=== PATIENT | male | born 1975 | race Two or more races ===

== ENCOUNTER 2024-11-06 09:21 | Emergency (ER) | payer MEDICAID, SELFPAY ==
[2024-11-06 09:22] VITALS: BMI 33.7
[2024-11-06 09:53] VITALS: BP 80/59; BP 99/65; PULSE 76; RESP 18; TEMP 36.6; O2SAT 95
--- NOTE | 2024-11-06 10:23 | PD.EDRME ---
Rapid Medical Screening Exam E Arrival date/time: 11/06/24 09:21 This is a 49-year-old male that was sent from the clinic with complaints of low blood pressure. Patient states that he usually has high blood pressure and takes losartan 100 mg daily. This morning when he took his medication he started feeling very dizzy and so he went to the clinic. Patient also had a rash to his neck that seems to have resolved now but patient has pictures on his phone. Patient continues to feel dizzy and was hypotensive in triage today initially in the 70s systolics 80s systolic. Patient denies chest pain but complains of shortness of breath. I have greeted and performed a focused initial assessment of this patient. Initial appropriate labs ordered at this time. A comprehensive ED assessment and evaluation of the patient and analysis of all test and completion of medical decision making process will be conducted by additional ED provider. Chief Complaint: General Adult/Misc Complain Time Seen by Provider: 11/06/24 09:57 Vital signs: Vital Signs Temperature 97.8 F 11/06/24 09:53 Pulse Rate 76 11/06/24 09:53 Respiratory Rate 18 11/06/24 09:53 Blood Pressure 80/59 L 11/06/24 09:53 Pulse Oximetry (%) 95 11/06/24 09:53 Oxygen Delivery Method Room Air 11/06/24 09:53
--- NOTE | 2024-11-06 10:25 | EKG_ITS ---
[facility] Test Date: 2024-11-06 Pat Name: BARBRA AREVALO Department: Room: - Gender: Male Transmission Technician: : 1975 Requested By: Monica Bowens Order Number: [id number] Reading MD: Monica Bowens Measurements Intervals [place] Rate: 84 P: 42 AK: 148 QRS: 5 QRSD: 88 T: -6 QT: 338 QTc: 402 Interpretive Statements SINUS RHYTHM INFERIOR MYOCARDIAL INFARCTION , PROBABLY OLD [40+ ms Q WAVE AND/OR ST/T ABNORMALITY IN II/aVF] Compared to ECG 02/16/2024 08:47:45 Myocardial infarct finding now present /store/S0/[id number].pdf
--- NOTE | 2024-11-06 10:25 | XR_ITS ---
Exam: Chest 1 view, AP Date and time of exam: 11/06/2024, 9:34 AM INDICATION: Shortness of breath Comparison: 09/29/2012 Findings: Normal heart size. No mediastinal adenopathy. No acute fracture No pulmonary edema or pneumonia. Impression: No active disease.
[2024-11-06] MEDS: SODIUM CHLORIDE 0.9% 1000 ML 1,000 ML 999 ML IV (11:06)
[2024-11-06 11:11] LABS: Basophils % (Auto) 0 % (0-2.5); Eosinophils # (Auto) 0.1 Thou/mm3 (0.0-0.5); Eosinophils % (Auto) 1 % (0-10); Hematocrit 55.9 % (41.0-53.0); Hemoglobin 18.8 g/dL (13.5-16.0); Immature Granulocytes % (Auto) 0 % (0-0); Immature Granulocytes Auto 0.04 Thou/mm3 (0.00-0.00); Lymphocytes # (Auto) 1.5 Thou/mm3 (1.0-4.8); Lymphocytes % (Auto) 11 % (10-50); Mean Corpuscular HGB Conc 33.6 g/dl (31.0-37.0); Mean Corpuscular Volume 89 fL (80-100); Monocytes # (Auto) 0.9 Thou/mm3 (0.0-0.8); Monocytes % (Auto) 7 % (0-12); Neutrophils % (Auto) 81 % (37-80); Nucleated Red Blood Cell # 0.04 Thou/mm3 (0.00-0.00); Nucleated Red Blood Cell % 0 /100 WBC (0); Platelet Count 354 Thou/mm3 (140-440); RDW Standard Deviation 42.1 fL (35.1-43.9); Red Blood Count 6.27 Miln/mm3 (4.50-5.90); White Blood Count 13.6 Thou/mm3 (3.8-10.6)
--- NOTE | 2024-11-06 11:11 | PC.NURSE ---
Per patients pt woke up this morning as usual and left to work. Pt stated that he developed a rash that covered his head down to legs, area looked like hives from pictures pt took. He stated he felt dizzy and nauseated, unknown reason rash had developed. On assessment patients face looks swollen, rash is gone, pt feels dizzy but hungry at this time.
--- NOTE | 2024-11-06 11:23 | XR_ITS ---
Examination: CT abdomen with intravenous contrast. CT pelvis with intravenous contrast. 2-D sagittal and coronal reconstructions. Date and time of exam: 11/06/2024 12:20 PM Indication: Abdominal pain CTDI: vol (mGy) 8.12 DLP: (mGycm) 516 Technique: Axial sections of the abdomen and pelvis have been obtained post contrast intravenous injection 3 mm slice thickness. 2-D coronal and sagittal reconstructions were obtained. Low dose protocols were performed. One or more of the following dose reduction techniques were used; automated exposure control, adjustment of the mA and/or KV according to patient size, use of iterative reconstruction technique. Findings: Incidental images of the lung bases demonstrates that they are clear. There are no basilar infiltrates or pleural effusions. Benign-appearing calcifications and left lung base. The heart size is normal. Imaging through the upper abdomen demonstrates a normal-appearing liver, spleen, pancreas, gallbladder and stomach. The adrenal glands are unremarkable. A 7.5 cm exophytic cyst in the mid right renal pole. Multiple subcentimeter cysts also seen bilaterally. Multiple nonobstructive renal calculi seen bilaterally. 7 mm. No evidence for hydronephrosis.. There is no evidence of solid renal mass or hydronephrosis The abdominal aorta is unremarkable. There is no periaortic lymphadenopathy. The small bowel loops appears normal. Multiple sigmoid diverticuli without evidence of inflammation.. There is no evidence of an intra-abdominal inflammatory process. The appendix is visualized and is not distended or inflamed. Bilateral fat-containing inguinal hernias without evidence of inflammation The urinary bladder is not distended and appears entirely normal. The prostate is not enlarged. The osseous structures appear intact. Impression: 75.5 cm right renal cyst with multiple additional subcentimeter renal cysts seen bilaterally. Multiple nonobstructive renal calculi. No evidence of hydronephrosis or perinephric inflammation. Sigmoid diverticulosis without evidence of diverticulitis..
--- NOTE | 2024-11-06 11:24 | EDNOTE_ITS ---
ED General RME/HPI General Chief complaint: General Adult/Misc Complain Stated complaint: LOW BP/ SEND BY PMD Time Seen by Provider: 11/06/24 09:57 Arrival date/time: 11/06/24 09:21 RME / HPI RME / HPI narrative: 49-year-old male patient with significant history of hypertension, was currently on 100 mg losartan daily that was just started recently, came in from the clinic for evaluation regarding hypotension. Apparently patient went to the clinic today for dizziness and a rash noted on the lateral side of the neck, in the clinic patient was noted to be hypotensive, on the low 70s, came to us for further evaluation today. Patient denies any other complaint except for upper abdominal pain that just started today. Also complained of urinary frequency is been ongoing for the last few days, associated with nocturia. Was seen by PCP and was already finished his antibiotic treatment. Denies any vomiting denies any fever denies any other complaints no medication was taken prior to arrival. Related Data Home Medications ?Medication ?Instructions ?Recorded ?Confirmed lisinopril 20 mg tablet 50 mg PO QDAY 03/13/2302/15 Previous Rx's ?Medication ?Instructions ?Recorded ciprofloxacin HCl 500 mg tablet 500 mg PO BID #14 tabs 02/17/24 (Cipro) ciprofloxacin HCl 500 mg tablet 500 mg PO BID #14 tabs 02/17/24 (Cipro) ciprofloxacin HCl 500 mg tablet 500 mg PO BID #14 tabs 02/17/24 (Cipro) ciprofloxacin HCl 500 mg tablet 500 mg PO BID #14 tabs 02/17/24 (Cipro) ciprofloxacin HCl 500 mg tablet 500 mg PO BID #14 tabs 02/17/24 (Cipro) hydrocodone 5 mg-acetaminophen 325 1 tab PO Q6H PRN pa in #20 tabs 02/17/24 mg tablet hydrocodone 5 mg-acetaminophen 325 1 tab PO Q6H PRN pa in #20 tabs 02/17/24 mg tablet hydrocodone 5 mg-acetaminophen 325 1 tab PO Q6H PRN pa in #20 tabs 02/17/24 mg tablet hydrocodone 5 mg-acetaminophen 325 1 tab PO Q6H PRN pa in #20 tabs 02/17/24 mg tablet hydrocodone 5 mg-acetaminophen 325 1 tab PO Q6H PRN pa in #20 tabs 02/17/24 mg tablet Allergies Allergy/AdvReac Type Severity Reaction Status Date / Time No Known Allergies Allergy Verified 11/06/24 09:25 Review of Systems Review of Systems Narrative Review of Systems: Review of system reviewed and within normal limits except mentioned in HPI ED Exam Narrative Physical exam: VITAL SIGNS: Reviewed. GENERAL APPEARANCE: Alert and interactive, follows commands, no acute distress, HEAD AND FACE: Non-traumatic. ENT: PERRL, pink conjunctivitis, eyelid no trauma, Mucous membrane moist. NECK: Supple, nontender, no nuchal rigidity. CHEST: No tenderness, no crepitus, no paradoxical movement, no retractions. LUNGS: Clear, well ventilated, symmetric, no rales, no wheezing, no ronchi, no stridor, good breath sounds bilaterally. HEART: Regular rate, regular rhythm, no murmur, no gallops. ABDOMEN: Soft, positive bowel sounds, nondistended, no guarding, nontender, no rebound, no masses, RECTAL: Deferred. GENITAL: Deferred. NEUROLOGICAL: Gross motor function intact sensory function intact, Appropriate for age. MUSCULOSKELETAL: low back nontender, full range of motion. EXTREMITIES: Nontender, full range of motion. SKIN: Color pink, dry, no rash, no lacerations, no abrasions, no contusions. LYMPHATICS: Deferred. Course Quality Measures none Orders Category Date Time Status CT Screening NOW Care 11/06/24 11:23 Active EKG (ED ONLY) *Do not use* NOW Care 11/06/24 10:25 Completed IV [Insert IV] STAT Care 11/06/24 10:[address] abdomen pelvis w con Stat Exams 11/06/24 11:23 Completed EKG (ED Only) Stat Exams 11/06/24 10:25 Draft XR chest 1V Stat Exams 11/06/24 10:25 Completed CBC Stat Lab 11/06/24 11:00 Completed Comprehensive Metabolic Panel Stat Lab 11/06/24 11:00 Completed Troponin I Stat Lab 11/06/24 11:00 Completed UA, C/S IF [Urinalysis, C/S if Indicated] Stat Lab 11/06/24 11:23 Ordered Sodium Chloride 0.9% 1000 ml [Ns] 1,000 ml Med 11/06/24 10:25 Discontinued IV 999 mls/hr Vital Signs Vital signs: Vital Signs Temperature 97.8 F 11/06/24 09:53 Pulse Rate 76 11/06/24 09:53 Respiratory Rate 18 11/06/24 09:53 Blood Pressure 80/59 L 11/06/24 09:53 Pulse Oximetry (%) 95 11/06/24 09:53 Oxygen Delivery Method Room Air 11/06/24 09:53 [facility] Patient data External records reviewed:: None Clinical information provided by:: patient and family Social determinants that could affect healthcare access:: none Patient has the following chronic illnesses:: Hypertension How is presenting disease/condition affected by chronic disease/condition?: e xacerbated by Evaluation data The following diagnostics were reviewed and interpreted by me:: lab results, radiology exam(s) and EKG tracing(s) Lab and/or radiology exams considered but not ordered:: None Interpretation Summary: See results in MDM Medications Medications considered but not ordered:: None Medication administrations:: Medication Administration History Discontinued Medications Sodium Chloride (Ns) 1,000 mls @ 999 mls/hr IV .Q1H1M ONE Stop: 11/06/24 11:25 Last Infusion: 11/06/24 12:23 Dose: Infused Documented By: Admin: 11/06/24 11:06 Dose: 999 mls/hr Documented By: RAYMON IV fluids for hydration Consultations Consultation(s) initiated? (list below): No Diagnosis Differential Diagnosis ED Complaint MDM: Hypotension, history of hypertension, adverse effect of medications, renal Most likely diagnosis given after review of the tests above:: Adverse effect of medications, renal cysts, hypotension Admission Indicated Admission indicated?: not indicated Explain why admission is indicated or not indicated:: Stable Admission Request Was there a request for admission?: No Disposition Plan Disposition Plan: Discharge Discharge Attestation Discharge Attestation: The patient and all family members were given an opportunity to ask questions and understood the discharge instructions. Discharge instructions specifically effects, indications for sooner follow up or return to the emergency department, and the expected course of current diagnosis. Patient condition: Stable Medical Decision Making [facility] Narrative MDM Narrative: 49-year-old male patient with significant history of hypertension, was currently on 100 mg losartan daily that was just started recently, came in from the clinic for evaluation regarding hypotension. Apparently patient went to the clinic today for dizziness and a rash noted on the lateral side of the neck, in the clinic patient was noted to be hypotensive, on the low 70s, came to us for further evaluation today. Patient denies any other complaint except for upper abdominal pain that just started today. Also complained of urinary frequency is been ongoing for the last few days, associated with nocturia. Was seen by PCP and was already finished his antibiotic treatment. Denies any vomiting denies any fever denies any other complaints no medication was taken prior to arrival. EKG as interpreted by me showed sinus rhythm, ventricular to 84 bpm, no ST segment ovation depression noted. Patient's workup today all came back unremarkable. Except for incidental finding of 75.5 cm right renal cyst with multiple additional subcentimeter renal cysts seen bilaterally. Multiple nonobstructive renal calculi. No evidence of hydronephrosis or perinephric inflammation. Sigmoid diverticulosis without evidence of diverticulitis.. I personally reviewed and interpreted the x-ray of this patient. There is no acute abnormalities found, no infiltrates no pneumothorax no hemothorax normal chest x-ray. Review of other structures was without significant abnormal findings also. I additionally reviewed the radiologist report and agree with the interpretation. Patient and family was strongly advised to closely follow-up with PCP in 1 to 2 days and for referral to urologist regarding renal cyst. Patient was noted to have blood pressure of 114/80 after IV fluids. Differential Diagnosis Differential Diagnosis: Hypotension, history of hypertension, adverse effect of medications, renal Lab Data 11/06/24 11:00 11/06/24 11:00 Labs: Lab Results 11/06/24 Range/Units 11:00 WBC 13.6 H (3.8-10.6) Thou/mm3 RBC 6.27 H (4.50-5.90) Miln/mm3 Hgb 18.8 H* (13.5-16.0) g/dL Hct 55.9 H (41.0-53.0) % MCV 89 (80-100) fL MCH 30.0 (25.0-35.0) pg MCHC 33.6 (31.0-37.0) g/dl RDW Std Deviation 42.1 (35.1-43.9) fL Plt Count 354 (140-440) Thou/mm3 Neut % (Auto) 81 H (37-80) % Lymph % (Auto) 11 (10-50) % [place] % (Auto) 7 (0-12) % Eos % (Auto) 1 (0-10) % Baso % (Auto) 0 (0-2.5) % Neut # (Auto) 11.0 H (1.8-7.7) Thou/mm3 Lymph # (Auto) 1.5 (1.0-4.8) Thou/mm3 [place] # (Auto) 0.9 H (0.0-0.8) Thou/mm3 Eos # (Auto) 0.1 (0.0-0.5) Thou/mm3 Baso # (Auto) 0.0 (0.0-0.2) Thou/mm3 Immature Gran # (Auto) 0.04 H (0.00-0.00) Thou/mm3 Absolute Nucleated RBC 0.04 H (0.00-0.00) Thou/mm3 Immature Gran % 0 (0-0) % Nucleated RBC % 0 (0) /100 WBC Sodium 139 (136-145) mMol/L Potassium 4.3 (3.4-5.1) mMol/L Chloride 106 (98-107) mMol/L Carbon Dioxide 25.0 (20.0-31.0) mMol/L Anion Gap 8 (7-16) BUN 14 (9-23) mg/dL Creatinine 1.4 H (0.6-1.3) mg/dL Estim Creat Clear Calc 62.0 (>60) mL/min eGFR > 60 (60 - ) See Note BUN/Creatinine Ratio 10 L (12-20) Ratio Glucose 110 H (74-106) mg/dL Calculated Osmolality 279 (275-295) Calcium 9.9 (8.3-10.6) mg/dL Corrected Calcium 9.9 (8.5-10.1) mg/dL Total Bilirubin 0.7 (0.3-1.2) mg/dL AST 26 (0-34) U/L ALT 29 (10-49) U/L Alkaline Phosphatase 71 (46-116) U/L Troponin I < 0.020 (0.0-0.045) ng/mL Total Protein 6.6 (5.7-8.2) gm/dL Albumin 4.0 (3.5-5.0) gm/dL Globulin 2.6 (2.3-3.5) gm/dL Albumin/Globulin Ratio 1.5 (1.2-2.2) Discharge Plan Plan Patient Disposition: HOME (Self Care) Disposition Comment: Stable Prescriptions/Referrals Prescriptions/Med Rec: No Action lisinopril 20 mg tablet 50 mg PO QDAY hydrocodone-acetaminophen 5-325 mg tablet 1 tab PO Q6H MDD 4 PRN (Reason: pain) Qty: 20 0RF ciprofloxacin HCl [Cipro] 500 mg tablet 500 mg PO BID Qty: 14 0RF hydrocodone-acetaminophen 5-325 mg tablet 1 tab PO Q6H MDD 4 PRN (Reason: pain) Qty: 20 0RF ciprofloxacin HCl [Cipro] 500 mg tablet 500 mg PO BID Qty: 14 0RF hydrocodone-acetaminophen 5-325 mg tablet 1 tab PO Q6H MDD 4 PRN (Reason: pain) Qty: 20 0RF ciprofloxacin HCl [Cipro] 500 mg tablet 500 mg PO BID Qty: 14 0RF hydrocodone-acetaminophen 5-325 mg tablet 1 tab PO Q6H MDD 4 PRN (Reason: pain) Qty: 20 0RF ciprofloxacin HCl [Cipro] 500 mg tablet 500 mg PO BID Qty: 14 0RF hydrocodone-acetaminophen 5-325 mg tablet 1 tab PO Q6H MDD 4 PRN (Reason: pain) Qty: 20 0RF ciprofloxacin HCl [Cipro] 500 mg tablet 500 mg PO BID Qty: 14 0RF Referrals: Wanda Vital MD [Primary Care Provider] - In 1 week Problem List Clinical Impression: Acute hypotension, Renal cyst Patient/Caregiver Discharge Instructions Discharge Activity: activity as tolerated Education Materials: Taking Your Blood Pressure Additional Instructions: Thank you for the opportunity for serving you today. You are stable for discharged . You are advised to: Follow-up with your PCP in 1 to 2 days as per referral to urologist regarding your renal cyst that was seen incidentally in CT scan of the abdomen and pelvis Return to ED for worsening of symptoms Increase oral fluids Check your blood pressure before taking your losartan, you can cut your losartan into 50 mg daily Print Language: Monegasque Stand Alone Forms: Janeen Award Info., Patient Portal Info Letter PA/CLINICAL STAFF EDUCATOR Supervising Physician PA/CLINICAL STAFF EDUCATOR Supervising Physician: MD Robert
[2024-11-06 11:30] LABS: Alanine Aminotransferase 29 U/L (10-49); Albumin/Globulin Ratio 1.5 (1.2-2.2); Alkaline Phosphatase 71 U/L (46-116); Anion Gap 8 (7-16); Aspartate Amino Transferase 26 U/L (0-34); BUN/Creatinine Ratio 10 Ratio (12-20); Bilirubin,Total 0.7 mg/dL (0.3-1.2); Blood Urea Nitrogen 14 mg/dL (9-23); Calcium 9.9 mg/dL (8.3-10.6); Calcium (Corrected) 9.9 mg/dL (8.5-10.1); Chloride 106 mMol/L (98-107); Creatinine (Component) 1.4 mg/dL (0.6-1.3); Globulin 2.6 gm/dL (2.3-3.5); Glucose 110 mg/dL (74-106); Osmolality,Calculated 279 (275-295); Potassium 4.3 mMol/L (3.4-5.1); Sodium 139 mMol/L (136-145); Total Protein 6.6 gm/dL (5.7-8.2); Troponin I < 0.020 ng/mL (0.0-0.045); eGFR > 60 See Note
[2024-11-06 12:54] VITALS: BP 117/74; BP 80/59; PULSE 79; RESP 20; TEMP 36.7; O2SAT 96
[2024-11-06 14:49] VITALS: BP 114/86; BP 80/59; PULSE 80; RESP 20; TEMP 36.6; O2SAT 96
[2024-11-06 16:23] VITALS: BP 124/72; PULSE 71; RESP 15; TEMP 36.6; O2SAT 98
== END 2024-11-06 16:24 | disposition home or self-care (01) ==
PROVIDERS: Nurse Practitioner Family; Emergency Provider Family Medicine; PCP Obstetrics & Gynecology
DX: I95.9 Hypotension, unspecified (principal); N28.1 Cyst of kidney, acquired; I10 Essential (primary) hypertension
CPT/HCPCS: 36415; 71045; 74177; 80053; 81001; 84484; 85025; 93005; 96360; 99285; A4649; J7030; Q9967

== ENCOUNTER → 2025-05-24 | Outpatient (CLI) | payer MEDICAID, SELFPAY ==
--- NOTE | 2025-05-24 11:30 | XR_ITS ---
Examination: Retroperitoneal ultrasound, complete Technique: Multiple high resolution grayscale images of the retroperitoneum obtained, including kidneys and bladder. Exam date and time:May 24, 2025, 1133 hours INDICATIONS: CT abdomen pelvis 09/08/2024 multiple renal cysts, including 7.5 cm right renal cyst FINDINGS: Right kidney 10.7 cm cortex 1.6 cm Upper pole cyst 7.9 cm 7 mm midpole calculus Left kidney 10.1 cm cortex 2.1 cm 8mm calculus upper pole kidney Moderate renal scar formation No bladder mass or bladder calculi Prostate 14.7 cc no prostate nodules IMPRESSION: Bilateral renal calculi Upper pole right renal cyst 7.9 cm Moderate bilateral renal parenchymal scar formation
== END | disposition home or self-care (01) ==
PROVIDERS: PCP Registered Nurse Community Health; Referring Provider Registered Nurse Community Health; Visit Provider Registered Nurse Community Health
DX: N20.0 Calculus of kidney (principal); N28.1 Cyst of kidney, acquired; N28.89 Other specified disorders of kidney and ureter
CPT/HCPCS: 76770